=== PATIENT | female | born 1940 | race Caucasian/White ===

== ENCOUNTER 2023-03-26 18:22 | Emergency (ER) | payer MEDICARE, SELFPAY ==
[2023-03-26] VITALS (20 sets, daily range): BP systolic 126–164; BP diastolic 62–88; PULSE 88–93; RESP 12–22; TEMP 37.3–38; O2SAT 88–99; BMI 28.3
--- NOTE | 2023-03-26 18:27 | DI.RAD.S_ITS ---
PROCEDURE: XR CHEST 1V INDICATIONS: weak, fatigued TECHNIQUE: One view of the chest was acquired. COMPARISON: None. FINDINGS: Surgical changes and devices: None. Lungs and pleura: Lungs are clear. No pleural effusions or pneumothorax. Mediastinum: Mediastinal contours appear normal. Heart size is enlarged. Bones and chest wall: No suspicious bony lesions. Overlying soft tissues appear unremarkable. IMPRESSION: Cardiomegaly. No focal infiltrate, pleural effusion or pneumothorax. Dictated by: Jairo Oneill M.D. on 03/26/2023 at 18:41 Approved by: Jairo Oneill M.D. on 03/26/2023 at 18:42
[2023-03-26] MEDS: ONDANSETRON 4 MG/2 ML INJ IV (18:40)
[2023-03-26 19:21] LABS: Add Manual Diff / Slide Review NO; Basophils Absolute Auto 0 /uL (0-100); Basophils Percent Auto 0.2 % (0-2); Eosinophils Absolute Auto 0 /uL (0-450); Hematocrit 36.2 % (36-46); Hemoglobin 11.9 g/dL (12.0-16.0); Lymphocytes Absolute Auto 200 /uL (1100-4500); Lymphocytes Percent Auto 1.9 % (25-40); Mean Corpuscular HGB Conc 32.7 % (30-36); Mean Corpuscular Hemoglobin 26.9 PG (26-34); Mean Corpuscular Volume 82.2 fL (80-100); Monocytes Absolute Auto 700 /uL (0-900); Monocytes Percent Auto 6.1 % (3-14); Neutrophils Absolute Auto 10400 /uL (1500-7000); Neutrophils Percent Auto 91.8 % (50-75); Platelet Count 186 X10^3/uL (150-400); Red Blood Cell Count 4.41 X10^6/uL (4.0-5.2); Red Cell Distribution Width 16.5 % (11.6-14.8); White Blood Cell Count 11.3 X10^3/uL (4.5-11.0)
[2023-03-26 19:32] LABS: Lactate (Lactic Acid) 1.3 mmol/L (0.7-2.1)
[2023-03-26 19:34] LABS: Alanine Aminotransferase 243 IU/L (<35); Albumin Globulin Ratio 1.3 (1.0-2.8); Alkaline Phosphatase 328 U/L (38-126); Aspartate Aminotransferase 440 IU/L (14-36); Bilirubin Total 2.7 mg/dL (0.2-1.3); Blood Urea Nitrogen 22 mg/dL (7-17); Calcium 8.7 mg/dL (8.4-10.2); Carbon Dioxide 22 mmol/L (22-32); Chloride 100 mmol/L (98-107); Creatine Kinase 40 U/L (30-135); Estimated Glomerular Filt Rate 47 mL/min (>60); Glucose 136 mg/dL (80-110); HEMOLYSIS 24 (0-50); Potassium 4.3 mmol/L (3.4-5.1); Sodium 129 mmol/L (137-145)
[2023-03-26 19:46] LABS: NT-proBNP (BNP-Adult 18+) 1070 pg/mL (<450); Troponin I < 0.012 ng/mL (0.01-0.034)
[2023-03-26 19:50] LABS: Procalcitonin 0.73 ng/mL (<0.5)
--- NOTE | 2023-03-26 20:26 | DI.US.S_ITS ---
PROCEDURE: US ABDOMEN LIMITED INDICATIONS: ELEVATED LFTS; SEPSIS TECHNIQUE: Real-time focused scanning was performed of the abdomen, with image documentation. COMPARISON: None. FINDINGS: The liver is normal in size and echotexture. The gallbladder contains 2 gallstones measuring up to 1.2 cm, mobile. No gallbladder wall thickening is present. There is no tenderness during sonographic palpation of the gallbladder and also no adjacent free fluid. There is, however, abnormal caliber of the common bile duct measuring up to 1 cm. IMPRESSION: Abnormal dilatation of the common bile duct measuring up to 1 cm diameter, etiology uncertain. There are gallstones within the gallbladder lumen, relatively large measuring up to 1.2 cm but these appear mobile. A distal common bile duct stone may be present as cause of the biliary prominence. Depending on the clinical status follow-up by MR cholangiography may become necessary. Dictated by: Alex Foote M.D. on 03/26/2023 at 21:56 Approved by: Alex Foote M.D. on 03/26/2023 at 21:59
[2023-03-26] MEDS: SODIUM CHLORIDE 0.9% 818.73 ML IV (21:07)
[2023-03-26 21:33] LABS: Ictotest Urine Negative (Negative)
--- NOTE | 2023-03-26 21:34 | DI.CT.S_ITS ---
PROCEDURE: CT CHEST ABD PEL W CON INDICATIONS: fever, sepsis, large Rightrenal cyst drained yesterday at TECHNIQUE: After the administration of intravenous contrast, 5 mm thick sections acquired from the lung apices to the symphysis. 5 mm coronal and sagittal reformats were performed, with additional 7 mm MIP reformats through the lungs. For radiation dose reduction, the following was used: automated exposure control, adjustment of mA and/or kV according to patient size. COMPARISON: [facility], , ABDOMEN LIMITED, 03/26/2023, 21:01. FINDINGS: Image quality: Excellent. CHEST: Lungs and pleura: No acute airspace opacities. Mild lung base atelectasis. No pleural effusions or pneumothorax. Central and peripheral airways appear patent and normal in caliber. Mediastinum: Heart size is normal. No pericardial effusion. No mediastinal or hilar adenopathy by size criteria. Thoracic aorta and central pulmonary arteries are normal in size. Esophagus is normal in caliber. No hiatal hernia. Chest wall: No axillary or supraclavicular adenopathy by size criteria. Thyroid gland appears normal where well seen . ABDOMEN: Solid organs: Liver is normal in size and enhancement. Gallbladder the gallbladder is lobulated and contains 2 centrally calcified peripherally relatively radiolucent gallstones each measuring slightly over 1 cm diameter. Biliary system is mildly dilated centrally without a visualized common duct calculus or mass at the common duct or pancreas. Pancreas enhances normally. Spleen is normal in size and enhancement. No adrenal nodules. The left kidney demonstrate normal size and enhancement, without hydronephrosis but with mild prominence of the central renal collecting system. In contrast, the right kidney appears abnormal with renal cortical thinning that is severe and with a relative collapse of the central renal collecting system in this patient who reports large volume renal fluid drainage 1 day ago at [facility]. Retroperitoneal noted or free intraperitoneal fluid is not associated with this recent procedure. Peritoneum and bowel: Bowel loops demonstrate normal wall thickness and caliber. No free fluid or air. Nodes and vessels: No retroperitoneal or mesenteric adenopathy by size criteria. Aorta and inferior vena cava are normal in size. Miscellaneous: No ventral hernias. PELVIS: Genitourinary: Bladder wall thickness is normal. Miscellaneous: No inguinal hernias or adenopathy. Extensive sigmoid diverticulosis without definite acute diverticulitis. No peridiverticular abscess is found. Bones: No suspicious bony lesions. No vertebral body compression fractures. IMPRESSION: The patient reports a large fluid drainage procedure 1 day ago at an outside institution, with no prior CT scanning available for review. The right kidney appears severely atrophic and the collecting system of the right kidney appears patulous and decompressed. No abnormal retroperitoneal or intraperitoneal fluid collection is seen associated with the recent procedure. Extensive diverticulosis involves the sigmoid colon and to a lesser degree the remainder of the colon but no acute diverticulitis is found. Ultrasound scanning earlier same day had identified unexpected prominence of the central intrahepatic bile ducts and also the common bile duct, also seen by CT scanning at this time. Etiology is uncertain. Depending on the clinical status follow-up by MR cholangiography may be warranted. Dictated by: Alex Foote M.D. on 03/26/2023 at 22:13 Approved by: Alex Foote M.D. on 03/26/2023 at 22:24
[2023-03-26 21:46] LABS: Bacteria Urine Few (2-10); RBC Urine 1-5/HPF (0-5/HPF); Renal Epithelial Cells Urine 1-5/HPF (0-1/HPF); Squamous Epithelial Cell Urine 1-5 /HPF (0-5/HPF); WBC Urine 30-100/HPF (0-5/HPF)
[2023-03-26 21:47] LABS: Culture Indicated Urine Specimen Cultured
--- NOTE | 2023-03-26 22:07 | ED_ITS ---
HPI - Fever General Chief Complaint: Fever Stated Complaint: weakness, fever post op Time Seen by Provider: 03/26/23 18:23 Source: patient and EMS Mode of arrival: EMS History of Present Illness HPI Narrative: 82-year-old female nonsmoker, with history of chronic renal disease, hypertension, avascular necrosis of the right femoral head, right renal cyst presents with a chief complaint feeling generally weak with fever over the past day or so. She is visiting from [place] and was attending a memorial service out in the [facility] and was feeling poorly over the course of the day. She elected to come be seen and evaluated as she was concerned that she might not be able to safely make it all the way home to [place]. She denies any headache or blurred vision nor runny nose, sore throat or cough. She denies chest pain or shortness of breath. She is had some nausea but denies any vomiting. She denies constipation or diarrhea. She does have some frequent urination and right-sided flank pain. It should be noted that just yesterday she had a large renal cyst drained at [facility]. She states that she had this cyst initially diagnosed in 2017 and they have been following it. She had been having trouble with ongoing abdominal fullness and bloating as well as right posterior back pain and they were able to perform the procedure yesterday and pulled off 2200 cc Related Data Allergies Allergy/AdvReac Type Severity Reaction Status Date / Time doxycycline Allergy Unknown Verified 03/26/23 18:36 hydrochlorothiazide Allergy Unknown Verified 03/26/23 18:36 Review of Systems Review of Systems Narrative: GENERAL: See HPI HEENT: Denies sinus pain, ear pain, sore throat, difficulty swallowing, dizziness. RESPIRATORY: Denies dyspnea, cough, wheezing, hemoptysis, sputum. CARDIOVASCULAR: Denies chest pain, palpitations, orthopnea, edema, GASTROINTESTINAL: Denies nausea, vomiting, abdominal pain, diarrhea, constipation, melena. : See HPI MUSCULOSKELETAL: denies weakness, joint pain, or bony pain SKIN: Denies rash, skin lesions, or other NEUROLOGIC: Denies weakness, headache, numbness, change in speech, confusion, seizures, incoordination. PSYCHIATRIC: No concerning psychosocial issues. 12 point review of systems is negative except for those stated above Patient History Social History Smoking Status: Never smoker Smoking Status: Never smoker alcohol intake frequency: 0-2 drinks per day Substance Use Type: does not use Exam Narrative Exam Narrative: GENERAL: [82] year old patient appears stated age. Well-developed patient, in mild distress. HEAD: Atraumatic. Normocephalic. EYES: Pupils equal round and reactive. Extraocular motions intact. No scleral icterus. No injection or drainage. ENT: Nose without bleeding, purulent drainage. Throat without erythema, tonsillar hypertrophy or exudate. Airway patent. NECK: Trachea midline. Non tender CARDIOVASCULAR: Regular rate and rhythm without murmurs, gallops, or rubs. RESPIRATORY: Clear to auscultation. Breath sounds equal bilaterally. No wheezes, rales, or rhonchi. GASTROINTESTINAL: Abdomen soft, minimal bloating, some tenderness and right upper quadrant, right posterior flank aspiration site without swelling or erythema EXTREMITIES: No edema or joint tenderness. BACK: Nontender without deformity or crepitance. No flank tenderness. NEURO: AOx3. SKIN: No rash or erythema of visible areas Initial Vital Signs Initial Vital Signs: Vital Signs Temperature 100.4 F H 03/26/23 18:25 Pulse Rate 90 03/26/23 18:25 Respiratory Rate 22 03/26/23 18:25 Blood Pressure 164/88 H 03/26/23 18:25 Pulse Oximetry 99 03/26/23 18:25 Oxygen Delivery Method Room Air 03/26/23 18:25 Course Orders Ordered: ED Orders 03/26/23 20:48 Ictotest Urine Stat Urine Culture Stat Urine Microscopic Stat 03/26/23 21:34 CT chest abd pel w con Stat 03/27/23 02:05 CMP [Comprehensive Metabolic Panel] Stat 03/27/23 03:05 COVID19 -Nasal RAPID Stat Discontinued Medications Acetaminophen (Acetaminophen 325 Mg Tablet) 975 mg PO NOW ONE Stop: 03/26/23 23:28 Last Admin: 03/26/23 23:34 Dose: 975 mg Documented By: DERRELL Sodium Chloride (Normal Saline 0.9%) 2,456.19 mls @ 818.73 mls/hr 30 ml/kg infuse over 3 hr (2456.19 ml) IV NOW ONE Stop: 03/26/23 23:27 Last Infusion: 03/27/23 00:15 Dose: 0 mls/hr Documented By: Admin: 03/26/23 21:07 Dose: 818.73 mls/hr Documented By: DERRELL Ceftriaxone Sodium 2,000 mg/ (Sodium Chloride) 100 mls @ 200 mls/hr IV NOW ONE Stop: 03/26/23 23:12 Last Infusion: 03/26/23 23:51 Dose: 0 mls/hr Documented By: Admin: 03/26/23 23:19 Dose: 200 mls/hr Documented By: DERRELL Metronidazole (Flagyl) 500 mg in 100 mls @ 100 mls/hr IV NOW ONE Stop: 03/27/23 04:16 Ondansetron HCl (Ondansetron 4 Mg/2 Ml Inj) 4 mg IV NOW ONE Stop: 03/26/23 18:36 Last Admin: 03/26/23 18:40 Dose: 4 mg Documented By: AT Reevaluation(s) Reevaluation #1: Patient feeling much better after fluids and antibiotics Consultations Consultation #1: call to Hospitalist at given elevated LFTs/Bili/ALk Phos and dilated CBD on imaging with expectant need for ERCP Consultation #2: discussed with hospitalist (Yordy), happy to accept on her service suggest that we add Flagyl to the antibiotic regimen, we may call transport now. Vital Signs Vital signs: Vital Signs - 8 hr 03/26/23 23:34 03/26/23 22:00 03/26/23 22:30 Temperature 99.1 F Pulse Rate 91 H Blood Pressure Pulse Oximetry 97 97 03/26/23 23:00 03/26/23 23:30 03/27/23 00:00 Temperature Pulse Rate 92 H 92 H 94 H Blood Pressure Pulse Oximetry 97 96 95 03/27/23 00:16 03/27/23 00:16 03/27/23 00:30 Temperature Pulse Rate 94 H 93 H Blood Pressure 121/58 L Pulse Oximetry 94 94 03/27/23 00:31 03/27/23 00:31 03/27/23 01:50 Temperature Pulse Rate 93 H 83 Blood Pressure 93/62 Pulse Oximetry 94 97 03/27/23 01:51 03/27/23 01:51 03/27/23 02:00 Temperature Pulse Rate 87 86 Blood Pressure 115/88 Pulse Oximetry 94 89 L 03/27/23 02:30 03/27/23 03:00 Temperature Pulse Rate 79 70 Blood Pressure Pulse Oximetry 86 L 93 MDM - Fever Lab Data 03/26/23 18:57 03/27/23 02:05 Labs: Lab Results 03/26/23 03/26/23 03/26/23 Range/Units 18:57 18:57 18:57 WBC 11.3 H (4.5-11.0) X10^3/uL RBC 4.41 (4.0-5.2) X10^6/uL Hgb 11.9 L (12.0-16.0) g/dL Hct 36.2 (36-46) % MCV 82.2 (80-100) fL MCH 26.9 (26-34) PG MCHC 32.7 (30-36) % RDW 16.5 H (11.6-14.8) % Plt Count 186 (150-400) X10^3/uL Neut % (Auto) 91.8 H (50-75) % Lymph % (Auto) 1.9 L (25-40) % [place] % (Auto) 6.1 (3-14) % Eos % (Auto) 0.0 L (2-4) % Baso % (Auto) 0.2 (0-2) % Neut # (Auto) 16678 H (8081-8848) /uL Lymph # (Auto) 200 L (7225-6867) /uL [place] # (Auto) 700 (0-900) /uL Eos # (Auto) 0 (0-450) /uL Baso # (Auto) 0 (0-100) /uL Sodium 129 L (137-145) mmol/L Potassium 4.3 (3.4-5.1) mmol/L Chloride 100 (98-107) mmol/L Carbon Dioxide 22 (22-32) mmol/L BUN 22 H (7-17) mg/dL Creatinine 1.16 H (0.52-1.04) mg/dL Estimated GFR 47 L (>60) mL/min BUN/Creatinine Ratio 19.0 (6-22) Glucose 136 H (80-110) mg/dL Lactate 1.3 (0.7-2.1) mmol/L Calcium 8.7 (8.4-10.2) mg/dL Total Bilirubin 2.7 H (0.2-1.3) mg/dL AST 440 H (14-36) IU/L ALT 243 H (<35) IU/L Alkaline Phosphatase 328 H (38-126) U/L Total Creatine Kinase 40 (30-135) U/L CK-MB (CK-2) TNP CK-MB (CK-2) Rel Index TNP Troponin I < 0.012 (0.01-0.034) ng/mL NT-Pro-B Natriuret Pep 1070 H (<450) pg/mL Total Protein 7.0 (6.3-8.2) g/dL Albumin 4.0 (3.5-5.0) g/dL Globulin 3.0 (1.7-4.1) g/dL Albumin/Globulin Ratio 1.3 (1.0-2.8) Procalcitonin 0.73 H (<0.5) ng/mL Ur Bilirubin Confirm (Negative) Urine RBC (0-5/HPF) Urine WBC (0-5/HPF) Ur Squamous Epith Cells (0-5/HPF) Ur Renal Epithelial Cell (0-1/HPF) Urine Bacteria (None) Ur Culture Indicated? SARS-CoV-2 (PCR) (Negative) 03/26/23 03/27/23 03/27/23 Range/Units 20:48 02:05 03:05 WBC (4.5-11.0) X10^3/uL RBC (4.0-5.2) X10^6/uL Hgb (12.0-16.0) g/dL Hct (36-46) % MCV (80-100) fL MCH (26-34) PG MCHC (30-36) % RDW (11.6-14.8) % Plt Count (150-400) X10^3/uL Neut % (Auto) (50-75) % Lymph % (Auto) (25-40) % [place] % (Auto) (3-14) % Eos % (Auto) (2-4) % Baso % (Auto) (0-2) % Neut # (Auto) (4966-1873) /uL Lymph # (Auto) (2573-3719) /uL [place] # (Auto) (0-900) /uL Eos # (Auto) (0-450) /uL Baso # (Auto) (0-100) /uL Sodium 133 L (137-145) mmol/L Potassium 4.3 (3.4-5.1) mmol/L Chloride 107 (98-107) mmol/L Carbon Dioxide 19 L (22-32) mmol/L BUN 18 H (7-17) mg/dL Creatinine 1.07 H (0.52-1.04) mg/dL Estimated GFR 52 L (>60) mL/min BUN/Creatinine Ratio 16.8 (6-22) Glucose 139 H (80-110) mg/dL Lactate (0.7-2.1) mmol/L Calcium 7.3 L (8.4-10.2) mg/dL Total Bilirubin 2.5 H (0.2-1.3) mg/dL AST 272 H (14-36) IU/L ALT 224 H (<35) IU/L Alkaline Phosphatase 239 H (38-126) U/L Total Creatine Kinase (30-135) U/L CK-MB (CK-2) CK-MB (CK-2) Rel Index Troponin I (0.01-0.034) ng/mL NT-Pro-B Natriuret Pep (<450) pg/mL Total Protein 5.9 L (6.3-8.2) g/dL Albumin 3.2 L (3.5-5.0) g/dL Globulin 2.7 (1.7-4.1) g/dL Albumin/Globulin Ratio 1.2 (1.0-2.8) Procalcitonin (<0.5) ng/mL Ur Bilirubin Confirm Negative (Negative) Urine RBC 1-5/hpf (0-5/HPF) Urine WBC 30-100/hpf H (0-5/HPF) Ur Squamous Epith Cells 1-5 /hpf (0-5/HPF) Ur Renal Epithelial Cell 1-5/hpf H (0-1/HPF) Urine Bacteria Few (2-10) H (None) Ur Culture Indicated? Specimen cultured SARS-CoV-2 (PCR) Negative (Negative) Urine Dip Bedside Urine Glucose Negative Bedside Urine Bilirubin + 1 Bedside Urine Ketone - Negative Urine Specific [place] 1.010 Bedside Urine Occult Blood - Negative Bedside Urine pH 7.0 Bedside Urine Protein +/- 15 Bedside Urine Urobilinogen - Negative Bedside Urine Nitrite - Negative Bedside Urine Leukocytes +++ [address] scan - abdomen/pelvis: Radiologist's Impression: Extensive diverticulosis, unexpected prominence of the central intrahepatic bile ducts and common bile duct, right kidney appears severely atrophic in the collecting system of the right kidney appears patulous and decompressed, no abnormal retroperitoneal or intraperitoneal fluid collection is noted MDM Narrative Medical decision making narrative: 82-year-old female with subjective fever, chills and weakness over the course of the day presents for evaluation. As noted above she had a procedure at [facility] yesterday to drain a large renal cyst. She is largely void of other specific complaints though mentions she is had ongoing right upper abdomen, flank and back pain for quite some time given the cyst. Per initial vital signs she is activated per sepsis protocol and lactate, cultures, procalcitonin, early antibiotics and fluids at 30 milliliters/kilogram ordered. Urine concerning for infection, patient given Rocephin 2 g early. Upon receipt of abnormal LFTs, bilirubin and alk-phos ultrasound is ordered which notes abnormally dilated common bile duct in the presence of gallstones. CT of the abdomen and pelvis with IV contrast ordered given recent procedure and thankfully no evidence of intraperitoneal or retroperitoneal hematoma or other postprocedural consequence is noted. It does, however redemonstrated dilated intrahepatic ducts. Patient requires transfer given the need for ERCP. Isi zarate is quick to call back and accept their patient in transfer. The patient understands and agrees with the diagnosis and plan Critical Care Time Critical Care Time Critical Care Time: Yes Total Critical Care Time: 30 Attestation: The high probability of a clinically significant, sudden or life threatening deterioration of the [GI] system(s) required my full and direct attention, intervention and personal management. The aggregate critical care time was [30] minutes. This time is in addition to time spent performing reported procedures but includes the following: [x] Data Review and interpretation [x] Patient assessment and monitoring of vital signs [x] Documentation [x] Medication orders and management Discharge Plan Departure Patient Disposition: [facility] Clinical Impression: Choledocholithiasis, Sepsis, Acute UTI
[2023-03-26] MEDS: cefTRIAXone 2,000 MG in SODIUM CHLORIDE 0.9% 100 ML 200 MG IV (23:19)
[2023-03-26] MEDS: ACETAMINOPHEN 325 MG TABLET 975 MG PO (23:34)
[2023-03-27] VITALS (19 sets, daily range): BP systolic 93–121; BP diastolic 57–90; PULSE 66–94; TEMP 36.7; O2SAT 86–97
[2023-03-27 02:25] LABS: Alanine Aminotransferase 224 IU/L (<35); Albumin 3.2 g/dL (3.5-5.0); Albumin Globulin Ratio 1.2 (1.0-2.8); Alkaline Phosphatase 239 U/L (38-126); Aspartate Aminotransferase 272 IU/L (14-36); BUN Creatinine Ratio 16.8 (6-22); Bilirubin Total 2.5 mg/dL (0.2-1.3); Blood Urea Nitrogen 18 mg/dL (7-17); Calcium 7.3 mg/dL (8.4-10.2); Carbon Dioxide 19 mmol/L (22-32); Chloride 107 mmol/L (98-107); Estimated Glomerular Filt Rate 52 mL/min (>60); Globulin 2.7 g/dL (1.7-4.1); Glucose 139 mg/dL (80-110); HEMOLYSIS < 15 (0-50); Potassium 4.3 mmol/L (3.4-5.1); Sodium 133 mmol/L (137-145); Total Protein 5.9 g/dL (6.3-8.2)
[2023-03-27 03:45] LABS: COVID19 -Nasal RAPID Negative (Negative)
[2023-03-27] MEDS: metroNIDAZOLE 500 MG/100 ML PIGGYBACK 100 MG IV (05:40)
[2023-03-27 07:24] LABS: Lipase 51 U/L (23-300)
--- NOTE | 2023-03-27 07:46 | PC.NURSE ---
Pt resting in bed sleeping. New set of vitals obtained. Report given to SAIDA MEYERS. Care relinquished at this time.
[2023-03-27 10:27] LABS: Acinetobacter calcoa-baumannii Not Detected (Not Detect); Bacteroides fragilis Not Detected (Not Detect); Candida albicans Not Detected (Not Detect); Candida auris Not Detected (Not Detect); Candida glabrata Not Detected (Not Detect); Candida krusei Not Detected (Not Detect); Candida parapsilosis Not Detected (Not Detect); Candida tropicalis Not Detected (Not Detect); Cryptococcus neoformans/gatti Not Detected (Not Detect); Enterobacter cloacae complex Not Detected (Not Detect); Enterobacterales DETECTED (Not Detect); Enterococcus faecalis Not Detected (Not Detect); Enterococcus faecium Not Detected (Not Detect); Haemophilus influenzae Not Detected (Not Detect); Klebsiella aerogenes Not Detected (Not Detect); Listeria monocytogenes Not Detected (Not Detect); Neisseria meningitidis Not Detected (Not Detect); Proteus species Not Detected (Not Detect); Pseudomonas aeruginosa Not Detected (Not Detect); Salmonella species Not Detected (Not Detect); Serratia marcescens Not Detected (Not Detect); Staphylococcus epidermidis Not Detected (Not Detect); Staphylococcus lugdunensis Not Detected (Not Detect); Staphylococcus species Not Detected (Not Detect); Stenotrophomonas maltophilia Not Detected (Not Detect); Streptococcus agalactiae (Gr B Not Detected (Not Detect); Streptococcus pneumonia Not Detected (Not Detect); Streptococcus pyogenes (Gr A) Not Detected (Not Detect); Streptococcus species Not Detected (Not Detect)
[2023-03-27 10:28] LABS: CTX-M Resistance Not Detected (Not Detect); IMP Resistance Not Detected (Not Detect); KPC Resistance Not Detected (Not Detect); NDM Resistance Not Detected (Not Detect); OXA-48-like Resistance Not Detected (Not Detect); VIM Resistance Not Detected (Not Detect); mcr-1 Resistance Not Detected (Not Detect)
== END 2023-03-27 08:20 | disposition short-term general hospital (02) ==
PROVIDERS: Emergency Medicine; Emergency Provider Emergency Medicine
DX: K80.50 Calculus of bile duct without cholangitis or cholecystitis without obstruction (principal); A41.9 Sepsis, unspecified organism; N39.0 Urinary tract infection, site not specified; Z20.822 Contact with and (suspected) exposure to COVID-19
CPT/HCPCS: 71045; 71260; 74177; 76705; 80053; 81003; 81015; 82550; 83605; 83690; 83880; 84145; 84484; 85025; 87040; 87086; 87154; 87186; 87635; 96365; 96367; 96375; 99284; C9803; J0696; J2405; Q9967